=== PATIENT | female | born 1965 | race Caucasian/White ===

== ENCOUNTER → 2016-09-06 | Outpatient (CLI) | payer BC ==
[~2016-09-06] MED LIST: B-COTAB18 PO; DICL50TA3 PO; FLUO10CA48 PO; METF500T5 PO; MULT-506 PO; SIMV20TA2 PO
[2016-09-06 12:44] LABS: ESTIMATED AVERAGE GLUCOSE 126 mg/dl; HA1C FLAG Normal (Normal)
[2016-09-06 12:55] LABS: CALCIUM 9.1 mg/dl (8.5-10.1)
[2016-09-06 13:04] LABS: BLOOD UREA NITROGEN 13 mg/dl (7-18); BUN/CREATININE RATIO 14.2 (10-20); CARBON DIOXIDE 30 mmol/L (21-32); CHLORIDE 105 mmol/L (98-107); CREATININE 0.92 mg/dl (0.60-1.20); GLUCOSE 120 mg/dl (70-99); GLUCOSE,FASTING 120 mg/dl (70-99); PHOSPHORUS 2.9 mg/dl (2.5-4.9); POTASSIUM 4.3 mmol/L (3.5-5.1); SODIUM 141 mmol/L (136-145)
== END | disposition home or self-care (01) ==
LOC: C.LABBFT 09:14
PROVIDERS: ATTEND Internal Medicine
DX: N20.0 Calculus of kidney (principal); R73.01 Impaired fasting glucose

== ENCOUNTER → 2016-11-29 | Outpatient (CLI) | payer BC ==
[2016-11-29 17:42] LABS: BLOOD UREA NITROGEN 12 mg/dl (7-18); BUN/CREATININE RATIO 13.5 (10-20); CALCIUM 9.8 mg/dl (8.5-10.1); CARBON DIOXIDE 32 mmol/L (21-32); CHLORIDE 103 mmol/L (98-107); GLUCOSE 95 mg/dl (70-99); POTASSIUM 4.5 mmol/L (3.5-5.1); SODIUM 140 mmol/L (136-145)
[2016-11-29 17:43] LABS: PHOSPHORUS 2.9 mg/dl (2.5-4.9)
== END | disposition home or self-care (01) ==
LOC: C.LABBFT 12:11
PROVIDERS: ATTEND Internal Medicine Nephrology
DX: N20.0 Calculus of kidney (principal)

== ENCOUNTER → 2016-12-23 | Outpatient (CLI) | payer BC ==
--- NOTE | 2016-12-24 14:30 | MAMMOGRAPHY REPORT ---
BILATERAL DIGITAL SCREENING MAMMOGRAM TOMOSYNTHESIS WITH CAD: 12/23/2016 CLINICAL HISTORY: Routine screening. Patient has no complaints. TECHNIQUE: Breast tomosynthesis in addition to standard 2D mammography was performed. Current study was also evaluated with a Computer Aided Detection (CAD) system. COMPARISON: Comparison is made to exams dated: 12/18/2015 mammogram, 12/02/2014 mammogram, 11/28/2013 m ammogram, 11/22/2012 mammogram, 11/22/2011 mammogram, and 11/18/2010 mammogram - [facility] enter. BREAST COMPOSITION: The tissue of both breasts is almost entirely fatty. FINDINGS: There is a newly visualized circumscribed 4 mm mass within the right upper outer quadrant anteriorly, for which ultrasound and possible additional spot compression views are recommended for f urther evaluation. This may represent a cyst. The remainder of both breasts are stable compared to prior exams, without suspicious masses, calcific ations, or areas of architectural distortion noted. Scattered bilateral benign-appearing calcificati ons are not significantly changed. IMPRESSION: ACR BI-RADS CATEGORY 0: INCOMPLETE EVALUATION: NEED ADDITIONAL IMAGING EVALUATION Right breast mass, for which additional imaging evaluation is recommended. The patient will be prieto d to schedule an appointment. Approximately 10% of breast cancers are not detected with mammography. A negative mammographic report should not delay biopsy if a clinically suggestive mass is present. Keke Smith M.D. /:12/23/2016 16:55:38 Aerospace Project Manager: Elicia LIMR, M, [facility] letter sent: Addl Imaging 0 BI-RADS Code: ACR BI-RADS Category 0: Incomplete Evaluation: Need Additional Imaging Evaluation
== END | disposition home or self-care (01) ==
LOC: C.MAMM 13:12
PROVIDERS: ATTEND Obstetrics & Gynecology
DX: Z12.31 Encounter for screening mammogram for malignant neoplasm of breast (principal); N63 Unspecified lump in breast

== ENCOUNTER → 2017-01-03 | Outpatient (CLI) | payer BC ==
--- NOTE | 2017-01-03 13:49 | MAMMOGRAPHY REPORT ---
ULTRASOUND OF RIGHT BREAST: 01/03/2017 CLINICAL HISTORY: 51-year-old woman with a history of prior reduction mammoplasty call back from scre ening mammography for a newly visualized 4 mm mass in the lateral anterior right breast on the CC vie w, thought to project inferiorly on the MLO view. COMPARISON: Comparison is made to exams dated: 12/23/2016 mammogram, 12/18/2015 mammogram, 12/02/2014 m ammogram, 11/28/2013 mammogram, 11/22/2011 mammogram, and 11/18/2010 mammogram - [facility] enter. FINDINGS: Targeted ultrasound was performed in the lateral right breast. In the 7:00 axis, 2 cm fro m the nipple, there is a lobulated and circumscribed hypoechoic and anechoic solid versus cystic mass , with a small rounded lobulation along the medial aspect. It measures approximately 2.1 x 2.4 x 3.5 mm, and correlates with the newly visualized mammographic mass. Given that it is difficult to asses s whether this represents a solid or cystic lesion, definitive characterization with ultrasound guide d cyst aspiration versus core needle biopsy is recommended. Post procedure mammograms should also be performed. IMPRESSION: ACR BI-RADS CATEGORY 4B: INTERMEDIATE SUSPICION FOR MALIGNANCY - FOLLOW-UP RECOMMENDED 1. There is a 3.5 mm lobulated and circumscribed hypoechoic and anechoic solid versus cystic mass in the 7:00 right breast, 2 cm from the nipple, thought to correlate with a newly visualized mammograph ic mass. Definitive characterization with ultrasound guided cyst aspiration versus core needle biops y is recommended. Postprocedure mammography is also recommended. These results and recommendations were discussed with the patient at the time of the exam. She tenta tively scheduled the right breast procedure prior to leaving our department. Beba Lombardo M.D. ay/:01/03/2017 11:27:16 Knot Borer: Katherine BAH)([place]), [facility] letter sent: Abnormal 4/5 BI-RADS Code: ACR BI-RADS Category 4B: Intermediate Suspicion For Malignancy
== END | disposition home or self-care (01) ==
LOC: C.MAMM 08:21
PROVIDERS: ATTEND Obstetrics & Gynecology
DX: N63 Unspecified lump in breast (principal)

== ENCOUNTER → 2017-01-06 | Outpatient (CLI) | payer BC ==
--- NOTE | 2017-01-06 12:41 | MAMMOGRAPHY REPORT ---
ASPIRATION RIGHT BREAST: 01/06/2017 CLINICAL HISTORY: Right 7:00 breast mass. PATIENT CONSENT: The procedure and risks of ultrasound-guided cyst aspiration were discussed in full with the patient. Both oral and written consents were obtained. PROCEDURE DESCRIPTION: With ultrasound guidance, aseptic technique, and 1% lidocaine as a local anest hetic, the mass of concern in the right 7:00 breast was aspirated to completion. A small amount of b enign-appearing yellow fluid was obtained and discarded. Direct pressure was applied to the site imm ediately post procedure and hemostasis was achieved. The patient tolerated the procedure without com plication. Postprocedural unilateral mammograms were obtained; see separate report for details. COMPARISON: Comparison is made to exams dated: 01/03/2017 ultrasound, 12/23/2016 mammogram, 12/18/2015 mammogram, 12/02/2014 mammogram, 11/28/2013 mammogram, and 11/22/2012 mammogram - [facility]. IMPRESSION: ASPIRATION Successful ultrasound-guided aspiration of the right 7:00 breast mass. Given that it completely aspi rated, it is consistent with a benign cyst. The aspirated fluid was discarded. Recommend routine bi lateral screening mammograms in one year. Keke Smith M.D. /:01/06/2017 09:53:53 Performance Specialist: Analia BAH)([place]), [facility]
--- NOTE | 2017-01-06 12:41 | MAMMOGRAPHY REPORT ---
UNILATERAL RIGHT DIGITAL DIAGNOSTIC MAMMOGRAM TOMOSYNTHESIS: 01/06/2017 CLINICAL HISTORY: Status post aspiration of a right 7:00 breast cyst. TECHNIQUE: Breast tomosynthesis in addition to standard 2D mammography was performed. Postprocedura l right CC and MLO 2-D and tomosynthesis images were obtained. COMPARISON: Comparison is made to exams dated: 01/03/2017 ultrasound, 12/23/2016 mammogram, 12/18/2015 mammogram, 12/02/2014 mammogram, 11/28/2013 mammogram, and 11/22/2012 mammogram - [facility]. BREAST COMPOSITION: The tissue of the right breast is almost entirely fatty. FINDINGS: The previously seen small mass in the right lower outer quadrant anteriorly is no longer ev ident status post aspiration of the right 7:00 breast cyst, indicating good correlation between the a spirated sonographic mass and the mammographic mass. No suspicious masses or other suspicious findin gs are seen on the postprocedural images. IMPRESSION: ACR BI-RADS CATEGORY 2: BENIGN The mammographic mass is no longer evident after aspiration of the right 7:00 breast cyst, indicating good mammographic-sonographic correlation. There is no mammographic evidence of malignancy. A 1 yea r screening mammogram is recommended. The patient was verbally notified of the results. Approximately 10% of breast cancers are not detected with mammography. A negative mammographic report should not delay biopsy if a clinically suggestive mass is present. Keke Smith M.D. /:01/06/2017 09:56:12 Weatherization And Housing Inspector: Analia LIM(R)([place]), [facility] BI-RADS Code: ACR BI-RADS Category 2: Benign
== END | disposition home or self-care (01) ==
LOC: C.MAMM 09:16
PROVIDERS: ATTEND Obstetrics & Gynecology
DX: N60.01 Solitary cyst of right breast (principal)

== ENCOUNTER → 2017-03-21 | Outpatient (CLI) | payer BC | END | disposition home or self-care (01) | LOC: C.PAPS 11:41 | PROVIDERS: ATTEND Obstetrics & Gynecology | DX: Z01.419 Encounter for gynecological examination (general) (routine) without abnormal findings (principal) ==

== ENCOUNTER → 2017-03-22 | Outpatient (CLI) | payer BC ==
[2017-03-22 12:21] LABS: ALT/SGPT 40 U/L (12-78); AST/SGOT 34 U/L (15-37); BLOOD UREA NITROGEN 14 mg/dl (7-18); CALCIUM 9.2 mg/dl (8.5-10.1); CARBON DIOXIDE 26 mmol/L (21-32); CHLORIDE 101 mmol/L (98-107); CHOLESTEROL 138 mg/dl (0-200); GLUCOSE 108 mg/dl (70-99); POTASSIUM 3.8 mmol/L (3.5-5.1); SODIUM 137 mmol/L (136-145); TRIGLYCERIDES 203 mg/dl (0-150); VERY LOW DENSITY LIPOPROT CALC 41 mg/dl
[2017-03-22 12:24] LABS: ALB/GLOB RATIO 0.9 (0.9-2); ALKALINE PHOSPHATASE 123 U/L (45-117); CHOLESTEROL/HDL RATIO 3.2; HDL CHOLESTEROL 43 mg/dl; LDL CHOLESTEROL CALCULATED 54 mg/dl
[2017-03-22 12:27] LABS: ESTIMATED AVERAGE GLUCOSE 117 mg/dl; HA1C FLAG Normal (Normal)
== END | disposition home or self-care (01) ==
LOC: C.LABBFT 09:03
PROVIDERS: ATTEND Physician Assistant Medical
DX: E78.5 Hyperlipidemia, unspecified (principal); R73.01 Impaired fasting glucose

== ENCOUNTER 2024-05-24 17:14 | Inpatient (IN) ==
[2024-05-24 18:14] LABS: Basophils # (auto) 0.05 K/uL (0.00-0.20); Basophils % (auto) 0.4 %; Eosinophils # (auto) 0.03 K/uL (0.00-0.50); Eosinophils % (auto) 0.2 %; Hematocrit (blood only) 41.8 % (37.0-47.0); Hemoglobin 13.7 g/dl (12.0-16.0); Immature Granulocytes # (auto) 0.06 K/uL (0.01-0.20); Immature Granulocytes % (auto) 0.5 %; Lymphocytes % (auto) 12.1 %; Mean Corpuscular Hemoglobin 30.8 pg (25.0-34.0); Mean Corpuscular Hgb Conc 32.8 g/dL (32.0-36.0); Mean Corpuscular Volume 93.9 fL (80.0-100.0); Monocytes # (auto) 0.69 K/uL (0.11-0.59); Monocytes % (auto) 5.2 %; Neutrophils # (auto) 10.77 K/uL (1.40-6.50); Neutrophils % (auto) 81.6 %; Platelet Count 296 K/uL (130-400); RDW Coefficient of Variation 11.9 % (11.5-14.5); RDW Standard Deviation 40.7 fL (36.4-46.3); Red Blood Count 4.45 M/uL (4.20-5.40)
[2024-05-24 18:27] LABS: Albumin Globulin Ratio 1.3 (0.9-2); Albumin Level 4.4 gm/dl (3.4-5.0); BUN Creatinine Ratio 29.6 (10-20); Bilirubin,Total 1.3 mg/dl (0.2-1.0); Calcium 9.5 mg/dl (8.6-10.3); Creatinine Clr Calc Pharmacy 80.8 ml/min; Globulin 3.3 gm/dl (2.5-4.0); Potassium 4.1 mmol/L (3.5-5.1); Total Protein 7.7 gm/dl (6.0-8.3)
--- NOTE | 2024-05-24 19:37 | CT Scan Report ---
Exam(s): CT ABDOMEN + PELVIS Without Contrast EXAM: CT Abdomen and Pelvis Without Intravenous Contrast CLINICAL HISTORY: Reason for exam: flank pain. TECHNIQUE: Axial computed tomography images of the abdomen and pelvis without intravenous contrast. CTDI is 27.76 mGy and DLP is 1403.75 mGy-cm. Automated exposure control was utilized for the study. A dose lowering technique was utilized adhering to the principles of ALARA. COMPARISON: 11/30/2022. FINDINGS: ABDOMEN: Liver: Unremarkable. Gallbladder and bile ducts: Unremarkable. Pancreas: Unremarkable. Spleen: Unremarkable. Adrenals: Unremarkable. Kidneys and ureters: Stone measuring 3 mm within the distal third of the left ureter with upstream hydroureteronephrosis. Stomach and bowel: Unremarkable. PELVIS: Appendix: No findings to suggest acute appendicitis. Bladder: Unremarkable. Reproductive: Unremarkable as visualized. ABDOMEN and PELVIS: Intraperitoneal space: Unremarkable. No free air. No significant fluid collection. Bones/joints: No acute fracture. Soft tissues: Unremarkable. Vasculature: Unremarkable. Lymph nodes: Unremarkable. IMPRESSION: Stone measuring 3 mm within the distal third of the left ureter with upstream hydroureteronephrosis. Electronically signed by: Davidson Morrison MD 05/24/24 19:36 PM
[2024-05-24 20:24] LABS: Appearance Urine Turbid (Clear); Bacteria Urine Automated None Seen (None Seen); Bilirubin Urine Negative (Negative); Blood Urine 3+ (Negative); Color Urine Orange; Glucose Urine UA Negative (Negative); Ketones Urine Negative (Negative); Leukocyte Esterase Urine 1+ (Negative); Mucus Urine Present (None Prsent); Nitrite Urine Negative (Negative); Protein Urine 2+ (Negative); RBC Urine Automated >20 /hpf (0-2); Urobilinogen Urine Negative (Negative); WBC Urine Automated >50 /hpf (0-5)
--- NOTE | 2024-05-24 21:19 | Emergency Department Note ---
Impression & Plan Calculus of distal left ureter, Acute UTI (urinary tract infection), Leukocytosis ED Provider Note HISTORY OF PRESENT ILLNESS: Patient is a 59-year-old female presenting with left flank pain and left lower quadrant abdominal pain. Patient reports that pain started acutely at 10 AM today. Reports that this feels similar to her prior history of kidney stones. Reports that her previous stones have required a stent and lithotripsy. She denies any measured fevers at home, but reports that she has had sweats and chills throughout the day today. Reports nausea but denies any vomiting or diarrhea. Denies any recent dysuria, but does report she had blood in her urine today. Denies any chest pain or shortness of breath. Denies any recent cough or sick contact exposures. Denies any recent antibiotic use. ROS: as above PHYSICAL EXAM: Constitutional: Patient appears in no acute distress. HENT: Head: Normocephalic and atraumatic. Eyes: EOMI, PERRL Mouth/Throat: Mucous membranes moist. Neck: Trachea midline. Neck supple. Cardiovascular: RRR, No murmurs, rubs or gallops. Intact distal pulses. Pulmonary/Chest: No respiratory distress. Breath sounds clear and equal bilaterally. No wheezes or rales. Abdominal: Abdomen soft, no tenderness, rebound or guarding. Musculoskeletal: No edema, tenderness or deformity noted. Skin: Warm and dry. No rash, erythema, pallor or cyanosis Psychiatric: Appropriate mood and affect for situation. Neurological: Alert and keenly responsive. CN II-XII grossly intact, moving all extremities equally and fully. MDM: - Vitals signs showed hypertension and bradycardia. - History obtained via patient. History as above. - Chronic conditions affecting care: HTN; nephrolithiasis; HLD - Differential diagnoses include, but are not limited to: UTI; pyelonephritis; ureteral stone; diverticulitis; small bowel obstruction - Order placed for continuous cardiac monitoring. At this time, monitor showed rate of 56 bpm with normal sinus rhythm, per my interpretation. - External medical records reviewed. Primary care visit note dated 07/20/2023 was reviewed. Patient was seen for routine follow-up exam. She had basic blood work ordered at that visit. - Laboratory workup interpreted by myself showed leukocytosis (WBC 13.20) with neutrophil predominance; stable electrolytes; normal creatinine; hyperglycemia (glucose 137); elevated total bilirubin (1.3) with normal AST/ALT - UA showed evidence of infection - CT abdomen/pelvis with IV contrast showed a 3 mm stone within the distal third of the left ureter with upstream hydroureteronephrosis. - Patient has anaphylactic allergy to penicillins. She was given 400 mg IV Cipro for UTI coverage. - Given 4 mg IV morphine and 4 mg IV zofran for pain and nausea in ER. Given 1L NS - Discussed case with urologist refrigeration tech, Dr. Quiroz, at 21:15. He agreed with admission for IV antibiotics and urologic consultation. Recommends n.p.o. at midnight. Reports that the patient starts to look ill or starts having vital sign abnormalities, urology should be contacted immediately for more emergent interventions. - Discussion was had with showcase maker about patient's case and need for admission - Hospitalist consulted for admission - Patient admitted to [facility]ist service for further evaluation and management. ASSESSMENT AND PLAN: Diagnosis: calculus of distal left ureter; acute UTI; leukocytosis Plan: admit Past Med/Surg History Problem List (Updated 05/24/24 @ 21:35 by Alisa Lynch MD) Leukocytosis (Acute) Acute UTI (urinary tract infection) (Acute) Calculus of distal left ureter (Acute) Vitamin D deficiency Nephrolithiasis Carpal tunnel syndrome Diverticulosis of colon Hyperlipidemia Hypertension Obesity Sleep apnea pt denies Degenerative joint disease of wrist Left knee pain S/P wrist surgery Routine gynecological examination Diabetes type 2, controlled Medical History Diabetes type 2, controlled Osteoarthritis Kidney stones Spasm Diabetes mellitus, type 2 Anxiety Depression Sleep apnea Obesity Hypertension Hyperlipidemia Diverticulosis of colon Surgical History History of breast biopsy H/O bilateral breast reduction surgery History of bilateral tubal ligation History of lithotripsy History of colonoscopy S/P blepharoplasty H/O eye surgery S/P cystoscopy with ureteral stent placement Family History Mother Lymphoma Breast cancer Father Myocardial infarction Hypertension Sister ESRD (end stage renal disease) Brother Hypertension Other No family history of adverse response to anesthesia Denies family history of Ovarian cancer Prostate cancer Colorectal cancer Social History Smoking Status: Never smoker Second Hand Exposure: No; Do You Dip or Chew Tobacco: No; Hx Alcohol Use: No Hx Substance Use: No Preferred Language: Sammarinese Communication Ability: Effective Visual Impairment: No Limitations Hearing Ability: Normal Load Out Person Required: No Beliefs That Will Affect Care: None marital status: Current Living Situation: Spouse current occupational status: retired current occupation: [employer] Feels Safe at Home: Yes Childhood Exposure to Second-Hand Smoke: No Diet: regular caffeine: Yes Dental Care, Regularly: Yes Physical Activity Frequency: 1-2 Times per Week Seatbelt Use: always Sunscreen Use: Yes Assistive Devices: Glasses Allergies Allergies Allergy/AdvReac Type Severity Reaction Status Date / Time Penicillins Allergy Unknown ANAPHYLAXIS Verified 04/26/24 08:57 Home Meds Home Medications Medication Instructions Recorded Confirmed cholecalciferol (vitamin D3) 25 2,000 unit PO HS #60 tabs 05/26/20 04/26/24 mcg (1,000 unit) tablet multivitamin 1 tab PO HS 05/26/20 04/26/24 aspirin 81 mg tablet,delayed 81 mg PO .qod 06/20/23 04/26/24 release (Leslie Low Dose Aspirin) Previous Rx's Medication Instructions Recorded cyclobenzaprine 10 mg tablet 10 mg PO TID PRN muscle spasm #30 06/16/21 tabs blood sugar diagnostic (OneTouch #100 ea 12/30/21 Verio test strips) blood-glucose meter (OneTouch #1 ea 12/30/21 Verio Reflect Meter) lancing device with lancets kit #100 ea 12/30/21 (BlaBlaCarTouch Delica Lancing Device kit) simvastatin 40 mg tablet 40 mg PO HS #90 tabs 06/20/23 fluoxetine 10 mg capsule 10 mg PO QPM #90 caps 11/16/23 diclofenac sodium 50 mg 50 mg PO HS pain #90 tabs 03/19/24 tablet,delayed release metformin 500 mg tablet,extended 1,000 mg (2 x 500 mg) PO HS #180 03/21/24 release 24 hr tabs Results & Data (ED) Vital Signs Vital Signs - 24 hr 05/24/24 17:33 05/24/24 20:29 Temperature 36.9 C Temperature Source Temporal Artery Scan Pulse Rate 85 Pulse Rate [Finger] 56 L Respiratory Rate 18 18 Respiratory Effort / Characteristics Non-Labored Non-Labored Spontaneous Respiratory Depth Normal Normal Respiratory Pattern Regular Blood Pressure 134/75 Blood Pressure [Right Arm] 141/76 H Blood Pressure Mean 94 Blood Pressure Mean [Right Arm] 97 Pulse Oximetry 98 98 Oxygen Delivery Method Room Air Room Air Sepsis Recent Fever Within 48 Hours No Sepsis New/Unexplained Change in Mental Status No Sepsis Action Taken by Nursing No Action Required Laboratory Data 05/24/24 17:52 05/24/24 17:52 Lab Results 05/24/24 05/24/24 Range/Units 17:52 19:43 WBC 13.20 H (4.8-10.8) K/ul RBC 4.45 (4.20-5.40) M/uL Hgb 13.7 (12.0-16.0) g/dl Hct 41.8 (37.0-47.0) % MCV 93.9 (80.0-100.0) fL MCH 30.8 (25.0-34.0) pg MCHC 32.8 (32.0-36.0) g/dL RDW Std Deviation 40.7 (36.4-46.3) fL RDW Coeff of Greg 11.9 (11.5-14.5) % Plt Count 296 (130-400) K/uL MPV 10.0 (9.4-12.4) fL Immature Gran % (Auto) 0.5 % Neut % (Auto) 81.6 % Lymph % (Auto) 12.1 % Hyde % (Auto) 5.2 % Eos % (Auto) 0.2 % Baso % (Auto) 0.4 % Neut # (Auto) 10.77 H (1.40-6.50) K/uL Lymph # (Auto) 1.60 (1.20-3.40) K/uL Hyde # (Auto) 0.69 H (0.11-0.59) K/uL Eos # (Auto) 0.03 (0.00-0.50) K/uL Baso # (Auto) 0.05 (0.00-0.20) K/uL Immature Gran # (Auto) 0.06 (0.01-0.20) K/uL Sodium 137 (136-145) mmol/L Potassium 4.1 (3.5-5.1) mmol/L Chloride 102 (98-107) mmol/L Carbon Dioxide 26 (21-32) mmol/L Anion Gap 9 (3-11) BUN 24 H (6-23) mg/dl Creatinine 0.81 (0.6-1.2) mg/dl Est Cr Clr Drug Dosing 80.8 ml/min eGFR 82.54 BUN/Creatinine Ratio 29.6 H (10-20) Glucose 137 H (70-99(Fasting)) mg/dl Calcium 9.5 (8.6-10.3) mg/dl Total Bilirubin 1.3 H (0.2-1.0) mg/dl AST 38 (13-39) U/L ALT 39 (7-52) U/L Alkaline Phosphatase 75 (34-104) U/L Total Protein 7.7 (6.0-8.3) gm/dl Albumin 4.4 (3.4-5.0) gm/dl Globulin 3.3 (2.5-4.0) gm/dl Albumin/Globulin Ratio 1.3 (0.9-2) Urine Color [place] Urine Appearance Turbid A (Clear) Urine pH 5.0 (4.5-7.5) Ur Specific [place] 1.040 H (1.000-1.030) Urine Protein 2+ H (Negative) Urine Glucose (UA) Negative (Negative) Urine Ketones Negative (Negative) Urine Blood 3+ H (Negative) Urine Nitrite Negative (Negative) Urine Bilirubin Negative (Negative) Urine Urobilinogen Negative (Negative) Ur Leukocyte Esterase 1+ H (Negative) Urine WBC (Auto) >50 H (0-5) /hpf Urine RBC (Auto) >20 H (0-2) /hpf U Hyaline Cast (Auto) 11-20 H (0-2) /lpf U Epithel Cells (Auto) 3-5 H (0-2) /hpf Urine Bacteria (Auto) None Seen (None Seen) Urine Mucus Present A (None Prsent) Urine Yeast Present A (None Prsent) Administered Medications Discontinued Medications Sodium Chloride (Nss) 1,000 mls @ 999 mls/hr IV .Q1H1M ONE Stop: 05/24/24 21:30 Last Admin: 05/24/24 21:26 Dose: 999 mls/hr Documented By: DML Morphine Sulfate (Morphine Sulfate 4 Mg/Ml 1 Ml Carp\Vial) 4 mg IV NOW STA Stop: 05/24/24 20:51 Last Admin: 05/24/24 21:26 Dose: 4 mg Documented By: DICKSON Ondansetron HCl (Ondansetron Inj 2 Mg/Ml 2 Ml Vial) 4 mg IV NOW STA Stop: 05/24/24 20:51 Last Admin: 05/24/24 21:26 Dose: 4 mg Documented By: DICKSON Imaging Data Radiologist's Impression: Abdomen/Pelvis CT 05/24/24 17:41 Exam(s): CT ABDOMEN + PELVIS Without Contrast EXAM: CT Abdomen and Pelvis Without Intravenous Contrast CLINICAL HISTORY: Reason for exam: flank pain. TECHNIQUE: Axial computed tomography images of the abdomen and pelvis without intravenous contrast. CTDI is 27.76 mGy and DLP is 1403.75 mGy-cm. Automated exposure control was utilized for the study. A dose lowering technique was utilized adhering to the principles of ALARA. COMPARISON: 11/30/2022. FINDINGS: ABDOMEN: Liver: Unremarkable. Gallbladder and bile ducts: Unremarkable. Pancreas: Unremarkable. Spleen: Unremarkable. Adrenals: Unremarkable. Kidneys and ureters: Stone measuring 3 mm within the distal third of the left ureter with upstream hydroureteronephrosis. Stomach and bowel: Unremarkable. PELVIS: Appendix: No findings to suggest acute appendicitis. Bladder: Unremarkable. Reproductive: Unremarkable as visualized. ABDOMEN and PELVIS: Intraperitoneal space: Unremarkable. No free air. No significant fluid collection. Bones/joints: No acute fracture. Soft tissues: Unremarkable. Vasculature: Unremarkable. Lymph nodes: Unremarkable. IMPRESSION: Stone measuring 3 mm within the distal third of the left ureter with upstream hydroureteronephrosis. Electronically signed by: Davidson Morrison MD 05/24/24 19:36 PM Discharge Plan Visit Data Chief Complaint: Kidney Stone Stated Complaint: KIDNY STONE, ABD PAIN, BACK PAIN, NAUSEA ED Provider: Alisa Lynch Discharge Problem: Calculus of distal left ureter, Acute UTI (urinary tract infection), Leukocytosis Forms Stand Alone Forms: [employer] Prescriptions Prescriptions: No Action (DME) blood-glucose meter [OneTouch Verio Reflect Meter] Misc See Rx Instructions .Route Qty: 1 0RF Rx Instructions: As directed (DME) OneTouch Verio test strips Strip See Rx Instructions .Route Qty: 100 3RF Rx Instructions: As directed (DME) lancing device with lancets [[employer] DelBlueMessaging Lanc Device] Kit See Rx Instructions .Route Qty: 100 0RF Rx Instructions: As directed fluoxetine 10 mg capsule 10 mg PO QPM Qty: 90 3RF diclofenac sodium 50 mg tablet,delayed release (DR/EC) 50 mg PO HS Qty: 90 1RF metformin 500 mg tablet extended release 24 hr 1,000 mg PO HS Qty: 180 3RF cyclobenzaprine 10 mg tablet 10 mg PO TID PRN (Reason: muscle spasm) Qty: 30 0RF cholecalciferol (vitamin D3) 25 mcg (1,000 unit) tablet 2,000 unit PO HS Qty: 60 simvastatin 40 mg tablet 40 mg PO HS Qty: 90 3RF multivitamin Tablet 1 tab PO HS aspirin [Leslie Low Dose Aspirin] 81 mg tablet,delayed release (DR/EC) 81 mg PO .qod Referrals Referrals: Orville Barakat MD [Primary Care Provider] -
[2024-05-24] MEDS: MoRPHine SULFATE 4 MG/ML 1 ML CARP\\VIAL IV STA (21:26)
[2024-05-24] MEDS: ONDANSETRON INJ 2 MG/ML 2 ML VIAL IV STA (21:26)
[2024-05-24] MEDS: SODIUM CHLORIDE 0.9% 1,000 ML IV ONE (21:26)
--- NOTE | 2024-05-24 21:29 | History & Physical Report ---
Date of Service May 24, 2024 Assessment & Plan (1) Calculus of distal left ureter: Plan: - CT A&P with 3mm stone in distal third of left ureter with upstream hydroureteronephrosis - s/p 1L NSS in ED; continue for an admission 1L @125ml/hr overnight - Pain regimen with morphine 2mg q4h pain 1-5 prn, 4mg pain 6-10 - will give tamsulosin - notes that she required small sized catheter with procedure in the past - urology consulted; NPO at midnight pending eval (2) Acute UTI (urinary tract infection): Plan: - Leukocytosis with + UA in the setting of nephrolithiasis - Started on ciprofloxacin in the ED plan to continue - last culture 04/2018-> group B strep - f/u urine culture (3) Leukocytosis: Plan: - WBC= 13.2 in the setting of UTI-> plan for antibiotics as per above (4) Diabetes mellitus, type 2: Plan: - hold metformin - last hemoglobin a1c= 5.9 04/2024 - well controlled for years; unlikely to require any insulin coverage while admitted (5) Anxiety: Plan: - continue fluoxetine Plan Diet: NPO midnight for urology Code: Full VTE Prophylaxis: SCD; hold chemical pending ?urology procedure Dispo: tele History of Present Illness Primary Care Provider: Orville Barakat MD 59 year old female with a past medical history of kidney stones, HLD, DM2 presenting with concern for kidney stone. Has a history of kidney stones. Pain started around 1000. Left abdomen/flank. Notes hematuria. Pain is similar to prior kidney stones, but has been a few years since for last. Follows with urology. Denies fever/chills. Pain has improved significantly after morphine. Did require stent/lithotripsy with prior stones. ED Course Significant for: WBC= 13.2, UA +blood, LE, WBC. CT A&P with 3mm stone in distal third of left ureter with upstream hydroureteronephrosis. S/p ciprofloxacin, 4mg IV morphine, 4mg Zofran, 1L NSS Allergies Allergy/AdvReac Type Severity Reaction Status Date / Time Penicillins Allergy Unknown ANAPHYLAXIS Verified 04/26/24 08:57 Home Medications Medication Instructions Recorded Confirmed Type cholecalciferol (vitamin D3) 25 2,000 unit PO HS #60 tabs 05/26/20 05/24/24 History mcg (1,000 unit) tablet multivitamin 1 tab PO HS 05/26/20 05/24/24 History cyclobenzaprine 10 mg tablet 10 mg PO TID PRN muscle spasm #30 06/16/21 05/24/24 Rx tabs blood sugar diagnostic (OneTouch #100 ea 12/30/21 05/24/24 Rx Verio test strips) blood-glucose meter (OneTouch #1 ea 12/30/21 05/24/24 Rx Verio Reflect Meter) lancing device with lancets kit #100 ea 12/30/21 05/24/24 Rx ([employer] Lancing Device kit) aspirin 81 mg tablet,delayed 81 mg PO Q OTHER DAY 06/20/23 05/24/24 History release (Leslie Low Dose Aspirin) simvastatin 40 mg tablet 40 mg PO HS #90 tabs 06/20/23 05/24/24 Rx diclofenac sodium 50 mg 50 mg PO HS pain #90 tabs 03/19/24 05/24/24 Rx tablet,delayed release metformin 500 mg tablet,extended 1,000 mg (2 x 500 mg) PO HS #180 03/21/24 05/24/24 Rx release 24 hr tabs fluoxetine 10 mg capsule 10 mg PO HS 05/24/24 05/24/24 History Past Med/Surg History Problem List (Updated 05/24/24 @ 23:06 by Jacob Carbone) Leukocytosis (Acute) Acute UTI (urinary tract infection) (Acute) Calculus of distal left ureter (Acute) Vitamin D deficiency Nephrolithiasis Carpal tunnel syndrome Diverticulosis of colon Hyperlipidemia Hypertension Obesity Sleep apnea pt denies Degenerative joint disease of wrist Left knee pain S/P wrist surgery Routine gynecological examination Diabetes type 2, controlled Medical History Diabetes type 2, controlled Osteoarthritis Kidney stones Spasm Diabetes mellitus, type 2 Anxiety Depression Sleep apnea Obesity Hypertension Hyperlipidemia Diverticulosis of colon Surgical History History of breast biopsy H/O bilateral breast reduction surgery History of bilateral tubal ligation History of lithotripsy History of colonoscopy S/P blepharoplasty H/O eye surgery S/P cystoscopy with ureteral stent placement Family History Mother Lymphoma Breast cancer Father Myocardial infarction Hypertension Sister ESRD (end stage renal disease) Brother Hypertension Other No family history of adverse response to anesthesia Denies family history of Ovarian cancer Prostate cancer Colorectal cancer Social History Smoking Status: Never smoker Second Hand Exposure: No; Do You Dip or Chew Tobacco: No; Hx Alcohol Use: Yes Hx Substance Use: No Preferred Language: Azeri Communication Ability: Effective Visual Impairment: No Limitations Hearing Ability: Normal Straightener Required: No Beliefs That Will Affect Care: None marital status: Current Living Situation: Spouse current occupational status: retired current occupation: [employer] Other Information That Helps Us Care for You: No Feels Safe at Home: Yes Safety Concerns: Feels Safe At This Time Childhood Exposure to Second-Hand Smoke: No Diet: regular caffeine: Yes Dental Care, Regularly: Yes Physical Activity Frequency: 1-2 Times per Week Seatbelt Use: always Sunscreen Use: Yes Assistive Devices: Glasses Review of Systems Review of Systems: As per above Physical Exam Physical Exam: Constitutional: well-appearing, no acute distress HEENT: NCAT, no conjunctival injection CV: regular rhythm, no murmur appreciated, extremities well-perfused, no LE edema Resp: CTABL, no wheezes/rales/rhonchi appreciated, no increased work of breathing GI: soft, nondistended, nontender MSK: no gross deformities appreciated Skin: warm, dry, no rash appreciated Neuro: alert, oriented, no focal neurologic deficit appreciated Results & Data Results & Data Vital Signs (Past 12 Hours) Vital Signs Temp Pulse Pulse Resp BP BP Pulse Ox 05/24/24 20:29 56 L 18 141/76 H 98 05/24/24 17:33 36.9 C 85 18 134/75 98 O2 Del Method 05/24/24 20:29 Room Air 05/24/24 17:33 Room Air Supervising Physician Co-Signing Physician Notes Attending addendum: I have physically seen this patient, have supervised the medical residents activities, and agree with the H&P unless as otherwise noted. Assessment and Plan: The patient is a 59-year-old female with past medical history including vitamin D deficiency, carpal tunnel syndrome, diverticulosis, hyperlipidemia, hypertension, sleep apnea, diabetes mellitus type 2. She presents to the emergency department with left lower quadrant abdominal and pelvic pain. #3 mm distal left ureteral calculus/hydronephrosis- N.p.o. after midnight Follow urine culture and sensitivity Empiric ciprofloxacin 400 mg IV every 12 hours Give tamsulosin 0.4 mg p.o. now, and every morning Acetaminophen 650 mg by mouth every 6 hours as needed for mild pain or fever Pain regimen with serial escalating doses of morphine 2 mg every 4 hours as needed moderate pain, and 4 mg every 4 hours as needed for severe pain Hold aspirin Consult urology #Diabetes mellitus- Glucose 137 on admission Hold metformin Place on Accu-Cheks with NovoLog SSI #Chronic medical issues: Anxiety-Continue fluoxetine Hyperlipidemia-continue simvastatin Anxiety depression-continue fluoxetine Resident Activity Tracking Resident Involvement: Resident Care Provided Care Provided: Adult Hospital Medicine
[2024-05-24] MEDS ORDERED: MoRPHine SULFATE 4 MG/ML 1 ML CARP\\VIAL IV PRN (21:51)
[2024-05-24] MEDS: CIPROFLOXACIN / D5W 400 MG/200 ML BAG IV STA (22:15)
[2024-05-24] MEDS: TAMSULOSIN HCL 0.4 MG CAP PO ONE (22:15)
[2024-05-24] MEDS: SODIUM CHLORIDE 0.9% 1,000 ML IV SCH (23:15)
[2024-05-25] MEDS: MoRPHine SULFATE 2 MG/ML CARP IV PRN (04:30)
[2024-05-25 06:44] LABS: Basophils # (auto) 0.02 K/uL (0.00-0.20); Basophils % (auto) 0.2 %; Eosinophils # (auto) 0.01 K/uL (0.00-0.50); Eosinophils % (auto) 0.1 %; Hematocrit (blood only) 36.9 % (37.0-47.0); Hemoglobin 11.9 g/dl (12.0-16.0); Immature Granulocytes # (auto) 0.03 K/uL (0.01-0.20); Immature Granulocytes % (auto) 0.3 %; Lymphocytes # (auto) 1.71 K/uL (1.20-3.40); Lymphocytes % (auto) 15.3 %; Mean Corpuscular Hemoglobin 30.8 pg (25.0-34.0); Mean Corpuscular Hgb Conc 32.2 g/dL (32.0-36.0); Mean Corpuscular Volume 95.6 fL (80.0-100.0); Mean Platelet Volume 10.4 fL (9.4-12.4); Monocytes # (auto) 0.78 K/uL (0.11-0.59); Neutrophils % (auto) 77.1 %; Platelet Count 254 K/uL (130-400); RDW Standard Deviation 41.7 fL (36.4-46.3); Red Blood Count 3.86 M/uL (4.20-5.40); White Blood Count 11.15 K/ul (4.8-10.8)
[2024-05-25 06:57] LABS: Calcium 8.7 mg/dl (8.6-10.3); Creatinine Clr Calc Pharmacy 92.5 ml/min; Potassium 4.4 mmol/L (3.5-5.1)
[2024-05-25] MEDS: CIPROFLOXACIN / D5W 400 MG/200 ML BAG IV SCH (10:04)
[2024-05-25] MEDS ORDERED: Nursing to Pharmacy Communication SCH (12:00)
--- NOTE | 2024-05-25 12:18 | Urology Consultation ---
Date of Consultation May 25, 2024 Assessment & Plan (1) Calculus of distal left ureter: (2) Acute UTI (urinary tract infection): Plan 59yo female admitted with an obstructing stone and concern for infection We reviewed her CT findings showing an obstructing 3 mm left ureteral stone. We discussed acute stone management with cystoscopy and stent placement. Ureteral stents were discussed as well as postoperative issues and pain management. She is aware a second procedure will be needed for stone treatment. Risks and benefits were discussed. All questions were answered. Will plan to proceed to OR today for cystoscopy, left retrograde pyelogram, left ureteral stent placement. Risks and benefits to be reviewed with patient by Dr. Lombardo. Keep NPO. She is covered with IV ciprofloxacin. Urology to follow. History of Present Illness Attending Physician: Malick Song MD History of Present Illness 59 year old female with a history of kidney stones who presented to the ED with acute onset of left flank/abdominal pain with associated chills/shakes. She was afebrile and hemodynamically stable. Labs showing a leukocytosis of 13 and normal renal function. Urinalysis with 3+ blood, 1+ LE,>50WBC, >20 RBC, negative bacteria, negative nitrite CT abdomen pelvis showing a 3 mm stone within the distal third of the left ureter with upstream hydroureteronephrosis Urine culture pending She was started on ciprofloxacin She is admitted to medicine service Patient was seen at bedside today. She is awake and resting in bed on arrival. No acute distress. She reports a history of kidney stones with prior intervention. Reports she was previously told she had a "small urethra" during stent removal. She denies fever, chills, nausea, vomiting at present. Voiding without issue. Denies hematuria or dysuria. Denies noticeable stone passage. Has been NPO. Allergies Allergy/AdvReac Type Severity Reaction Status Date / Time Penicillins Allergy Unknown ANAPHYLAXIS Verified 04/26/24 08:57 Home Medications Medication Instructions Recorded Confirmed Type cholecalciferol (vitamin D3) 25 2,000 unit PO HS #60 tabs 05/26/20 05/24/24 History mcg (1,000 unit) tablet multivitamin 1 tab PO HS 05/26/20 05/24/24 History cyclobenzaprine 10 mg tablet 10 mg PO TID PRN muscle spasm #30 06/16/21 05/24/24 Rx tabs blood sugar diagnostic (OneTouch #100 ea 12/30/21 05/24/24 Rx Verio test strips) blood-glucose meter (OneTouch #1 ea 12/30/21 05/24/24 Rx Verio Reflect Meter) lancing device with lancets kit #100 ea 12/30/21 05/24/24 Rx ([employer] Lancing Device kit) aspirin 81 mg tablet,delayed 81 mg PO Q OTHER DAY 06/20/23 05/24/24 History release (Leslie Low Dose Aspirin) simvastatin 40 mg tablet 40 mg PO HS #90 tabs 06/20/23 05/24/24 Rx diclofenac sodium 50 mg 50 mg PO HS pain #90 tabs 03/19/24 05/24/24 Rx tablet,delayed release metformin 500 mg tablet,extended 1,000 mg (2 x 500 mg) PO HS #180 03/21/24 05/24/24 Rx release 24 hr tabs fluoxetine 10 mg capsule 10 mg PO HS 05/24/24 05/24/24 History Patient History Medical History Diabetes type 2, controlled Osteoarthritis Kidney stones Spasm Diabetes mellitus, type 2 Anxiety Depression Sleep apnea Obesity Hypertension Hyperlipidemia Diverticulosis of colon Surgical History History of breast biopsy H/O bilateral breast reduction surgery History of bilateral tubal ligation History of lithotripsy History of colonoscopy S/P blepharoplasty H/O eye surgery S/P cystoscopy with ureteral stent placement Family History Mother Lymphoma Breast cancer Father Myocardial infarction Hypertension Sister ESRD (end stage renal disease) Brother Hypertension Other No family history of adverse response to anesthesia Denies family history of Ovarian cancer Prostate cancer Colorectal cancer Social History Smoking Status: Never smoker Second Hand Exposure: No; Do You Dip or Chew Tobacco: No; Hx Alcohol Use: Yes Hx Substance Use: No Preferred Language: Maori Communication Ability: Effective Visual Impairment: No Limitations Hearing Ability: Normal Corporate Travel Agent Required: No Beliefs That Will Affect Care: None marital status: Current Living Situation: Spouse current occupational status: retired current occupation: [employer] Feels Safe at Home: Yes Childhood Exposure to Second-Hand Smoke: No Diet: regular caffeine: Yes Dental Care, Regularly: Yes Physical Activity Frequency: 1-2 Times per Week Seatbelt Use: always Sunscreen Use: Yes Assistive Devices: Glasses Review of Systems Review of Systems: All systems reviewed & are unremarkable except as noted in HPI & below Physical Exam Constitutional: no acute distress Respiratory: no respiratory distress and no labored breathing Musculoskeletal: Head/Neck/Chest: normocephalic Skin: No visible rashes or lesions to exposed skin areas Neurologic: moves all extremities and awake Psychiatric: A+Ox3, euthymic affect Results & Data Vital Signs (Past 12 Hours) Vital Signs Temp Pulse Pulse Resp BP Pulse Ox O2 Del Method 05/25/24 08:00 36.6 C 58 L 16 108/65 95 Room Air 05/25/24 05:39 60 05/25/24 03:52 36.6 C 62 16 115/68 96 Room Air PG Care Time/CCT Total # of Minutes Spent Total Time Spent with Patient: Total time spent is greater than 50% in coordination of care (as documented) at patient's floor/unit and/or counseling patient: Coding Level of Care Code 00963 IN/OBS CONSULT LVL 4,60M Diagnoses Calculus of distal left ureter N20.1 Acute UTI (urinary tract infection) N39.0
--- NOTE | 2024-05-25 12:25 | Anesthesiology Consultation ---
Date of Service May 25, 2024 Assessment & Plan Chart Review Chart Review: Acceptable Risk for Surgery and Patient NOT seen in Pre Admission Testing Consults Requested none History Surgery Operation Date: 05/25/24 08:20 Proposed Procedures p Cystoscopy, Left Retrograde Pyelogram, Left Stent Placement - Orville Lombardo MD Height/Weight Height: 5 ft 3.5 in Weight: 93.3 kg Allergies Allergy/AdvReac Type Severity Reaction Status Date / Time Penicillins Allergy Unknown ANAPHYLAXIS Verified 04/26/24 08:57 Medications Home Medications Medication Instructions Recorded Confirmed Last Taken cholecalciferol (vitamin D3) 25 2,000 unit PO HS #60 tabs 05/26/20 05/24/24 05/23/24 mcg (1,000 unit) tablet multivitamin 1 tab PO HS 05/26/20 05/24/24 05/23/24 cyclobenzaprine 10 mg tablet 10 mg PO TID PRN muscle spasm #30 06/16/21 05/24/24 Unknown tabs blood sugar diagnostic (OneTouch #100 ea 12/30/21 05/24/24 Unknown Verio test strips) blood-glucose meter (OneTouch #1 ea 12/30/21 05/24/24 Unknown Verio Reflect Meter) lancing device with lancets kit #100 ea 12/30/21 05/24/24 Unknown ([employer] Delica Lancing Device kit) aspirin 81 mg tablet,delayed 81 mg PO Q OTHER DAY 06/20/23 05/24/24 05/23/24 release (Leslie Low Dose Aspirin) simvastatin 40 mg tablet 40 mg PO HS #90 tabs 06/20/23 05/24/24 05/23/24 diclofenac sodium 50 mg 50 mg PO HS pain #90 tabs 03/19/24 05/24/24 05/23/24 tablet,delayed release metformin 500 mg tablet,extended 1,000 mg (2 x 500 mg) PO HS #180 03/21/24 05/24/24 05/23/24 release 24 hr tabs fluoxetine 10 mg capsule 10 mg PO HS 05/24/24 05/24/24 05/23/24 Active Medications Generic Name Dose Route Start Last Admin Trade Name Freq PRN Reason Stop Dose Admin Ciprofloxacin 400 mg in 200 mls @ 100 mls/hr 05/25/24 10:15 05/25/24 12:17 Cipro / D5w IV 06/04/24 10:14 Infused Q12H NICHOL Infusion Protocol Morphine Sulfate 2 mg 05/24/24 21:51 05/25/24 10:17 Morphine Sulfate 2 Mg/Ml Carp IV 06/07/24 21:50 2 mg Q4H PRN Administration Pain (1,2,3,4,5) & Pre PT Past Medical History Medical History Osteoarthritis Kidney stones Spasm maxi facial spasm (Left) Diabetes mellitus, type 2 NIDDM Anxiety Depression Past Family History Family History Mother Lymphoma Breast cancer Father Myocardial infarction Hypertension Sister ESRD (end stage renal disease) Brother Hypertension Other No family history of adverse response to anesthesia Denies family history of Ovarian cancer Prostate cancer Colorectal cancer Past Surgical History Surgical History History of breast biopsy benign x2 H/O bilateral breast reduction surgery History of bilateral tubal ligation History of lithotripsy History of colonoscopy S/P blepharoplasty bilateral H/O eye surgery tear duct stent (right eye) S/P cystoscopy with ureteral stent placement Social History Smoking Status: Never smoker Do You Dip or Chew Tobacco: No Hx Alcohol Use: Yes alcohol intake frequency: holidays/special occasions only Hx Substance Use: No substance use type: does not use Physical Exam Vital Signs Last Vital Signs Temp 36.8 C 05/25/24 12:19 Pulse 71 05/25/24 12:19 Resp 16 05/25/24 12:19 BP 126/56 L 05/25/24 12:19 Pulse Ox 93 05/25/24 12:19 O2 Del Method Room Air 05/25/24 12:19 Testing Laboratory Results 05/25/24 05:47 05/25/24 05:47 Urine Color [place] 05/24/24 19:43 Urine Appearance Turbid (Clear) A 05/24/24 19:43 Urine pH 5.0 (4.5-7.5) 05/24/24 19:43 Ur Specific [place] 1.040 (1.000-1.030) H 05/24/24 19:43 Urine Protein 2+ (Negative) H 05/24/24 19:43 Urine Glucose (UA) Negative (Negative) 05/24/24 19:43 Urine Ketones Negative (Negative) 05/24/24 19:43 Urine Nitrite Negative (Negative) 05/24/24 19:43 Ur Leukocyte Esterase 1+ (Negative) H 05/24/24 19:43 Urine WBC (Auto) >50 /hpf (0-5) H 05/24/24 19:43 Urine RBC (Auto) >20 /hpf (0-2) H 05/24/24 19:43 U Hyaline Cast (Auto) 11-20 /lpf (0-2) H 05/24/24 19:43 U Epithel Cells (Auto) 3-5 /hpf (0-2) H 05/24/24 19:43 Urine Bacteria (Auto) None Seen (None Seen) 05/24/24 19:43 05/24/24 19:43 Urine Culture - Preliminary Urine,Clean Catch Pin-point growth present, reincubating. 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
[2024-05-25] MEDS ORDERED: ATROPINE SULFATE 0.1 MG/ML 10ML SYR IV PRN (13:16)
[2024-05-25] MEDS ORDERED: fentaNYL citrate PF 100 MCG/2 ML VIAL IV PRN (13:16)
[2024-05-25] MEDS ORDERED: ePHEDrine sulfate 50 MG/ML AMP IV PRN (13:16)
[2024-05-25] MEDS ORDERED: PROMETHAZINE HCL 6.25 MG in SODIUM CHLORIDE 0.9% 50 ML IV PRN (13:16)
[2024-05-25] MEDS ORDERED: ONDANSETRON INJ 2 MG/ML 2 ML VIAL IV PRN (13:16)
[2024-05-25] MEDS: LR 15ML/HR IV SCH (13:20)
[2024-05-25] MEDS ORDERED: LIDOCAINE 2% 2 ML VIAL/AMP(20MG/ML) INFIL ONE (13:39)
[2024-05-25] MEDS ORDERED: MIDAZOLAM HCL 1 MG/ML 2ML VIAL ONE (13:39)
[2024-05-25] MEDS ORDERED: fentaNYL citrate PF 100 MCG/2 ML VIAL ONE (13:39)
[2024-05-25] MEDS ORDERED: PROPOFOL IV EMULSION 10 MG/ML 20 ML VIAL IV ONE (13:40)
[2024-05-25] MEDS ORDERED: ONDANSETRON INJ 2 MG/ML 2 ML VIAL ONE (14:08)
[2024-05-25] MEDS ORDERED: KETOROLAC 30 MG/ML VIAL ONE (14:09)
[2024-05-25] MEDS ORDERED: ePHEDrine sulfate 50 MG/ML AMP ONE (14:11)
--- NOTE | 2024-05-25 14:14 | Operative Report ---
[facility] Post Operative Report Pre & Post Diagnosis Operation Date: 05/25/24 07:00 Pre-Op Diagnosis: Calculus of distal left ureter Post-Op Diagnosis: Calculus of distal left ureter I identified the patient and participated in the time-out.: Yes Procedure Operation Date: 05/25/24 07:00 Actual Procedures p Cystoscopy, Left Retrograde Pyelogram, Left Stent Placement(Left) - Orville Lombardo MD Surgeon Orville Lombardo MD [employer] none Estimated Blood Loss 0 Findings Consistent with Post-Op Diagnosis Specimens none Description of Procedure The patient was identified in the preoperative holding area, appropriate informed consents were reviewed and completed and the patient was transferred to the operative suite. Upon arrival, appropriate antibiotics and anesthesia were administered and the patient was placed in dorsal lithotomy position and prepped and draped in sterile fashion. Me in the case I passed a 21 Tong[place] cystoscope 30 lens. Inspection revealed a healthy appearing bladder with ureteral orifices in orthotopic position. I turned my attention the left UO and cannulated with a sensor wire and a 5 Tong[place] open-ended catheter. Wire advanced the kidney without difficulty and I proceeded to place a 7 Tongan by 24 cm Coloplast double-J stent. There was good curl in the kidney as well as the bladder. The bladder was decompressed and the case was concluded. She was reversed of anesthesia and taken the recovery room in stable condition. She will be scheduled for definitive surgery to treat her stone in the near future. I attest to the content of the Intraoperative Record and any orders documented therein. Any exceptions are noted below.
--- NOTE | 2024-05-25 14:21 | Anesthesiology Progress Note ---
Date of Service May 25, 2024 Anesthesia Post Procedure Vital Signs Vital Signs: Temp Pulse Pulse Resp BP BP BP 05/25/24 13:10 36.9 C 62 16 143/74 H 05/25/24 13:00 56 L 05/25/24 12:19 36.7 C 91 H 16 115/67 05/25/24 08:00 36.6 C 58 L 16 108/65 05/25/24 05:39 60 05/25/24 03:52 36.6 C 62 16 115/68 05/24/24 23:37 64 05/24/24 23:30 05/24/24 23:10 36.3 C L 70 18 145/74 H 05/24/24 21:55 65 24 132/83 05/24/24 21:45 63 15 132/83 05/24/24 21:44 61 05/24/24 20:29 56 L 18 141/76 H 05/24/24 17:33 36.9 C 85 18 134/75 Pulse Ox O2 Del Method 05/25/24 13:10 95 Room Air 05/25/24 13:00 05/25/24 12:19 93 Room Air 05/25/24 08:00 95 Room Air 05/25/24 05:39 05/25/24 03:52 96 Room Air 05/24/24 23:37 05/24/24 23:30 Room Air 05/24/24 23:10 96 Room Air 05/24/24 21:55 97 Room Air 05/24/24 21:45 95 Room Air 05/24/24 21:44 05/24/24 20:29 98 Room Air 05/24/24 17:33 98 Room Air Pain Intensity Left Flank: Pain Intensity: 1 Transfer of Care Handoff Completed per policy Notes Mental Status: alert / awake / arousable Patient Amnestic to Procedure: Yes Nausea / Vomiting: adequately controlled Pain: adequately controlled Airway Patency, RR, SpO2: stable & adequate BP & HR: stable & adequate Hydration State: stable & adequate Anesthetic Complications: no major complications apparent
--- NOTE | 2024-05-25 15:09 | Fluoroscopy Report ---
FL [facility] CLINICAL HISTORY: STENT EXCHANGEleft ureteral stent placement COMPARISON STUDY: CT 05/24/2024 FLUOROSCOPY TIME: 5.5 seconds FLUOROSCOPY IMAGES: 2 EXPOSURE DOSE: 1.61 mGy FINDINGS: A left ureteral stent appears to be in satisfactory positioning. IMPRESSION: Fluoroscopic assistance as above. ACT 112: Negative or not required by law. Electronically signed by: Anthony Gruber M.D. 05/25/2024 2:31 PM
[2024-05-25 15:24] VITALS: RESP 18
--- NOTE | 2024-05-25 17:05 | Hospitalist Progress Note ---
Date of Service May 25, 2024 Assessment & Plan (1) Calculus of distal left ureter: Plan: 59 year old female with a past medical history of kidney stones, HLD, DM2 presented with concern for kidney stone. She experienced left flank pain with hematuria and reported pain is similar to prior kidney stones. She reports her previous stents required stent placement/lithotripsy. - CT A&P with 3mm stone in distal third of left ureter with upstream hydroureteronephrosis - Urology consulted, s/p cystoscopy, left retrograde pyelogram, left ureteral stent placement 05/[address] Lombardo. Patient tolerated procedure well with no complications noted - Tylenol as needed for mild pain or fever, oxycodone 5 mg p.o. Q6H PRN moderate-severe pain - Continue tamsulosin 0.4 mg daily - Anticipate discharge home 05/26 with outpatient urology follow-up (2) Acute UTI (urinary tract infection): Plan: Leukocytosis with +UA in setting of nephrolithiasis - Urine culture with >3 types of organisms present, all moderate counts mixed probable skin jazmine - Continue ciprofloxacin 400 mg IV Q12H, can transition to oral cipro on discharge (3) Diabetes mellitus, type 2: Plan: Last A1c= 5.9% in 04/2024 - On metformin at home - held while admitted - Well controlled for years; unlikely to require any insulin coverage while admitted (4) Anxiety: Plan: Continue fluoxetine Plan Reviewed urology consultation and operative report CODE STATUS: Full code Dispo: Anticipate discharge home 05/26/2024 Admission and Anticipated Discharge Date Admission Date: May 24, 2024 Supervising Physician Co-Signing Physician Notes Attending Attestation - Chart reviewed, care plan d/w CAMDEN Knight. I agree w/ the boswell components of her documentation. Malick Song MD Subjective Patient seen and evaluated at bedside following her procedure. She met with urology earlier today who discussed treatment options, and patient decided to proceed with cystoscopy, left retrograde pyelogram, and left ureteral stent placement. She tolerated this procedure well with no complications noted. She reports minor headache at this time and believes this is from being hungry. She also reports some discomfort from her stent. She denies any other complaints or concerns at this time. She debated return home this evening, but wanted to ensure no problems arise overnight. Anticipate discharge 05/26 in the morning. Physical Exam Physical Exam: General: No acute distress, nondiaphoretic, well-developed, well-nourished. Cardiac: Regular rate and rhythm without murmurs gallops or rubs. Pulm: Clear to auscultation bilaterally without wheezes, rales or rhonchi. No respiratory distress. 95% on room air. Abdominal: Soft, nontender, nondistended. Bowel sounds present. Neuro: A&O x3. No focal neurological deficits. Results & Data Results & Data Vital Signs (Past 12 Hours) Vital Signs Temp Pulse Pulse Pulse Resp BP BP 05/25/24 15:38 58 L 05/25/24 15:23 64 18 126/69 05/25/24 15:02 98.1 F 61 16 111/67 05/25/24 14:50 98.4 F 60 12 123/61 05/25/24 14:40 61 12 128/64 05/25/24 14:30 61 16 134/72 05/25/24 14:20 97.7 F 78 16 155/84 H 05/25/24 13:10 98.4 F 62 16 143/74 H 05/25/24 13:00 56 L 05/25/24 12:19 98.1 F 91 H 16 115/67 05/25/24 08:00 97.9 F 58 L 16 108/65 05/25/24 05:39 60 Pulse Ox O2 Del Method 05/25/24 15:38 05/25/24 15:23 95 Room Air 05/25/24 15:02 93 Room Air 05/25/24 14:50 94 Room Air 05/25/24 14:40 94 Room Air 05/25/24 14:30 94 Room Air 05/25/24 14:20 95 Room Air 05/25/24 13:10 95 Room Air 05/25/24 13:00 05/25/24 12:19 93 Room Air 05/25/24 08:00 95 Room Air 05/25/24 05:39 Laboratory Results Reviewed CBC Reviewed CMP Reviewed UA Reviewed urine culture PG Care Time/CCT Total # of Minutes Spent Total Time Spent with Patient: Total time spent is greater than 50% in coordination of care (as documented) at patient's floor/unit and/or counseling patient: Coding Level of Care Code 27925 SUB INP/OBS CARE 3/50MIN Diagnoses Calculus of distal left ureter N20.1 Acute UTI (urinary tract infection) N39.0 Diabetes mellitus, type 2 E11.9 Anxiety F41.9
[2024-05-25] MEDS: TAMSULOSIN HCL 0.4 MG CAP PO ONE (17:43)
[2024-05-25] MEDS: MULTIVITAMIN TAB PO SCH (21:03)
[2024-05-25] MEDS: FLUoxetine HCL 10 MG CAP PO SCH (21:03)
[2024-05-25] MEDS: oxyCODONE HCL IR 5 MG TAB (IMMEDIATE RELEASE) PO PRN (23:11)
[2024-05-26 06:42] LABS: Hematocrit (blood only) 39.4 % (37.0-47.0); Hemoglobin 12.3 g/dl (12.0-16.0); Mean Corpuscular Hemoglobin 30.6 pg (25.0-34.0); Mean Corpuscular Hgb Conc 31.2 g/dL (32.0-36.0); Platelet Count 220 K/uL (130-400); RDW Standard Deviation 43.7 fL (36.4-46.3); Red Blood Count 4.02 M/uL (4.20-5.40); White Blood Count 10.16 K/ul (4.8-10.8)
[2024-05-26 07:31] VITALS: TEMP 97.9; O2SAT 96
[2024-05-26] MEDS: ACETAMINOPHEN 325 MG TAB PO PRN (08:13)
[2024-05-26] MEDS: TAMSULOSIN HCL 0.4 MG CAP PO SCH (08:14)
--- NOTE | 2024-05-26 08:22 | Discharge Summary ---
Discharge Summary Date of Service May 26, 2024 Principal Dx & Hospital Course #1 = Principal Diagnosis (1) Calculus of distal left ureter: 59 year old female with a past medical history of kidney stones, HLD, DM2 presented with concern for kidney stone. She experienced left flank pain with hematuria and reported pain was similar to prior kidney stones. She reports her previous stents required stent placement/lithotripsy. Patient was into the OR f or cystoscopy, left retrograde pyelogram, left ureteral stent placement on 05/25/[address] Lombardo. She tolerated this well with no complications noted. She will follow-up with urology outpatient for definitive stone management. - CT A&P with 3mm stone in distal third of left ureter with upstream hydroureteronephrosis - Urology consulted, s/p cystoscopy, left retrograde pyelogram, left ureteral stent placement 05/[address] Lombardo; tolerated procedure well with no complications noted - Pain regimen on discharge: Tylenol/ibuprofen as needed for mild pain/fever. Tramadol 50 mg p.o. every 6 hours as needed moderatesevere pain. - Continue tamsulosin 0.4 mg daily (2) Acute UTI (urinary tract infection): Leukocytosis with +UA in setting of nephrolithiasis - Urine culture with >3 types of organisms present, all moderate counts mixed probable skin jazmine - Treated with IV ciprofloxacin while inpatient, transitioned to ciprofloxacin 500 mg p.o. twice daily x 5 days on discharge (3) Diabetes mellitus, type 2: Last A1c= 5.9% in 04/2024 - On metformin at home - Well controlled for years; did not require any insulin coverage while admitted (4) Anxiety: Continue fluoxetine Plan Dispo: Discharged home 05/26/2024 Notes For Next Care Provider Follow-up with urology outpatient for definitive stone treatment Medication Changes From Visit Cipro 500 mg twice daily x 5 days Flomax 0.4 mg daily Tramadol 50 mg every 6 hours as needed moderatesevere pain Admission HPI Per Admitting Provider 59 year old female with a past medical history of kidney stones, HLD, DM2 presenting with concern for kidney stone. Has a history of kidney stones. Pain started around 1000. Left abdomen/flank. Notes hematuria. Pain is similar to prior kidney stones, but has been a few years since for last. Follows with urology. Denies fever/chills. Pain has improved significantly after morphine. Did require stent/lithotripsy with prior stones. ED Course Significant for: WBC= 13.2, UA +blood, LE, WBC. CT A&P with 3mm stone in distal third of left ureter with upstream hydroureteronephrosis. S/p ciprofloxacin, 4mg IV morphine, 4mg Zofran, 1L NSS Discharge Exam General: No acute distress, nondiaphoretic, well-developed, well-nourished. Cardiac: Regular rate and rhythm without murmurs gallops or rubs. Pulm: Clear to auscultation bilaterally without wheezes, rales or rhonchi. No respiratory distress. 95% on room air. Abdominal: Soft, nontender, nondistended. Bowel sounds present. Neuro: A&O x3. No focal neurological deficits. Discharge Plan Discharge Items Patient Disposition: Home - Self-Care Reason For Visit: KIDNEY STONE Discharge Diagnosis: Ureteral stone s/p stent placement, UTI Activity: Resume your previous activity Lifting: Gradually increase as tolerated Bathing: No limitations Sexual Activity: When tolerated Exercise/Sports: Gradually increase as tolerated Non-emergency contact: Urologist Call non-emergency contact if: you have any medication questions, your pain is concerning for you, you have a fever and your temperature is above 101.5 Follow-up/Referrals: Orville Barakat MD [Primary Care Provider] - (Follow-up in 1-2 weeks) Greg Quiroz MD [Physician] - (Follow-up as directed) Diet: Carb Consistent or DM2 Addtl Attending Provider Instructions: Mrs. Anaya, Tin were admitted to the hospital because of a left ureteral stone with hydroureteronephrosis (swelling of your ureter/kidney). Your urinalysis was suggestive of a urinary tract infection (UTI), so you were started on an antibiotic. You were evaluated by urology who discussed options for stone management. You went to the OR and had cystoscopy, left retrograde pyelogram, left ureteral stent placed on 05/25/[address] Lombardo. He tolerated this procedure well and there were no complications. Your prescriptions have been sent to your [facility] pharmacy in [place]. Upon discharge from the hospital: * Take ciprofloxacin (oral antibiotic) 500 mg twice daily x 5 days. This is to treat your UTI. It is important to complete this course of antibiotics even if you are no longer experiencing symptoms. * Take Flomax 0.4 mg daily. This is an alpha-mamadou relaxes the muscles in your bladder, making it easier to pee and potentially pass the kidney stone. Take this until your urology follow-up appointment. * Alternate between Tylenol and ibuprofen as your first-line pain control. These are [id number] (OTC), so no prescription is required. * Take tramadol 50 mg every 6 hours NEEDED for breakthrough pain. This is a narcotic pain medication. Do not drive or operate heavy machinery when taking this. * Use the urine strainer to strain your urine at home in case you pass the stone. Your nurse will provide you with a strainer prior to leaving the [facility]. * Follow-up with urology outpatient for definitive stone treatment. Their office will call you with appointment details. While you have a ureteral stent in place: Some discomfort is normal. Certain movements may trigger pain or a feeling that you need to urinate. You may also feel mild soreness or pressure before or during urination. These symptoms should go away a few days after the stent is removed. Your urine may be slightly pink or red. This is due to bleeding caused by minor irritation from the stent. This may happen on and off while you have the stent, it is not harmful and is to be expected. Medication to help minimize discomfort or bladder spasms, or to prevent infection may be prescribed. Take this as directed. Drink plenty of fluids to help flush out your urinary tract. If you go home with a catheter, wash with soapy water and a fresh washcloth twice daily. We recommend mild bar soap such as Dial or Dove. When to call [facility] at [phone]: Your urine contains heavy blood clots You are constantly leaking urine Fever of 101F or higher, chills, nausea, or vomiting Your pain is not relieved with medication The end of the stent comes out of your urethra Please return to the hospital if you experience any of the following: Pain that is not controlled by the medicine given, repeated vomiting or unable to keep down fluids, fever of 100.4 F or higher, solid red or brown urine, urine with a lot of blood clots, foul-smelling or cloudy urine, unable to urinate for 8 hours with increasing bladder pressure, weakness, dizziness, passing out, chest pain, or difficulty breathing. It was a pleasure taking care of you while you were in the hospital, Christine Knight PA-C Addtl Athletic Trainer Provider Instructions: Is expected to see a small amount of blood while you have a left stent in place. He also may experience some flank pain when urinating. This will resolve once the stent is removed. Dr. Lombardo's office will be in touch with you to schedule a definitive surgery to treat the kidney stone. Pending Studies at Discharge: No Stand-Alone Forms: My [facility] [place], Smoking Cessation Medications and DC Order Prescriptions: New ciprofloxacin HCl [Cipro] 500 mg tablet 500 mg PO BID Qty: 10 0RF tramadol 50 mg tablet 50 mg PO Q6H PRN (Reason: pain) Qty: 20 0RF tamsulosin 0.4 mg Capsule 0.4 mg PO QAM Qty: 14 0RF Continued (DME) blood-glucose meter [BlackSquareTouch Verio Reflect Meter] Misc See Rx Instructions .Route Qty: 1 0RF Rx Instructions: As directed (DME) OneTouch Verio test strips Strip See Rx Instructions .Route Qty: 100 3RF Rx Instructions: As directed (DME) lancing device with lancets [[place] Delica Lanc Device] Kit See Rx Instructions .Route Qty: 100 0RF Rx Instructions: As directed diclofenac sodium 50 mg tablet,delayed release (DR/EC) 50 mg PO HS Qty: 90 1RF metformin 500 mg tablet extended release 24 hr 1,000 mg PO HS Qty: 180 3RF cyclobenzaprine 10 mg tablet 10 mg PO TID PRN (Reason: muscle spasm) Qty: 30 0RF cholecalciferol (vitamin D3) 25 mcg (1,000 unit) tablet 2,000 unit PO HS Qty: 60 simvastatin 40 mg tablet 40 mg PO HS Qty: 90 3RF multivitamin Tablet 1 tab PO HS aspirin [Leslie Low Dose Aspirin] 81 mg tablet,delayed release (DR/EC) 81 mg PO Q OTHER DAY fluoxetine 10 mg capsule 10 mg PO HS Discharge Orders: Discharge Order (Routine); Ordered 05/26/24 Ordered By: Christine Knight Admission Data Admit Date/Time: 05/24/24 21:47 Attending Provider: Malick Song Admit Provider: Milagro Cox Primary Care Provider: Orville Barakat Other Providers: Milagro Cox; Orville Lombardo Other Interventions: Discharge Summary Assessment (RN) Last Done: 05/26/24 09:27 Hospital Stay Data Consultations 05/24/24 21:32 Consult Urology Routine ED Decision to Admit Stat Procedures Performed Operation Date: 05/25/24 07:00 Actual Procedures p Cystoscopy, Left Retrograde Pyelogram, Left Stent Placement(Left) - Orville Lombardo MD Diagnostic Imagining Performed 05/24/24 17:41 CT abd pelvis wo con Stat 05/25/24 13:30 FL KUB Routine Pending Results Patient Have Any Pending Studies at Discharge: No Discharge Instructions Given to Patient (Per Discharging Provider) Tin Evans were admitted to the hospital because of a left ureteral stone with hydroureteronephrosis (swelling of your ureter/kidney). Your urinalysis was suggestive of a urinary tract infection (UTI), so you were started on an antibiotic. You were evaluated by urology who discussed options for stone management. You went to the OR and had cystoscopy, left retrograde pyelogram, left ureteral stent placed on 05/25/[address] Lombardo. He tolerated this procedure well and there were no complications. Your prescriptions have been sent to your [facility] pharmacy in [place]. Upon discharge from the hospital: * Take ciprofloxacin (oral antibiotic) 500 mg twice daily x 5 days. This is to treat your UTI. It is important to complete this course of antibiotics even if you are no longer experiencing symptoms. * Take Flomax 0.4 mg daily. This is an alpha-mamadou relaxes the muscles in your bladder, making it easier to pee and potentially pass the kidney stone. Take this until your urology follow-up appointment. * Alternate between Tylenol and ibuprofen as your first-line pain control. These are [id number]-hwphrab (OTC), so no prescription is required. * Take tramadol 50 mg every 6 hours NEEDED for breakthrough pain. This is a narcotic pain medication. Do not drive or operate heavy machinery when taking this. * Use the urine strainer to strain your urine at home in case you pass the stone. Your nurse will provide you with a strainer prior to leaving the h ospital. * Follow-up with urology outpatient for definitive stone treatment. Their office will call you with appointment details. While you have a ureteral stent in place: Some discomfort is normal. Certain movements may trigger pain or a feeling that you need to urinate. You may also feel mild soreness or pressure before or during urination. These symptoms should go away a few days after the stent is removed. Your urine may be slightly pink or red. This is due to bleeding caused by minor irritation from the stent. This may happen on and off while you have the stent, it is not harmful and is to be expected. Medication to help minimize discomfort or bladder spasms, or to prevent infection may be prescribed. Take this as directed. Drink plenty of fluids to help flush out your urinary tract. If you go home with a catheter, wash with soapy water and a fresh washcloth twice daily. We recommend mild bar soap such as Dial or Dove. When to call [facility] at [phone]: Your urine contains heavy blood clots You are constantly leaking urine Fever of 101F or higher, chills, nausea, or vomiting Your pain is not relieved with medication The end of the stent comes out of your urethra Please return to the hospital if you experience any of the following: Pain that is not controlled by the medicine given, repeated vomiting or unable to keep down fluids, fever of 100.4 F or higher, solid red or brown urine, urine with a lot of blood clots, foul-smelling or cloudy urine, unable to urinate for 8 hours with increasing bladder pressure, weakness, dizziness, passing out, chest pain, or difficulty breathing. It was a pleasure taking care of you while you were in the hospital, Christine Knight PA-C Supervising Physician Co-Signing Physician Notes Attending Attestation and Discharge Note: Chart reviewed, discharge care plan d/w CAMDEN Knight. I agree w/ the boswell components of her discharge documentation. 59yo female with history of T2DM & kidney stones presented with left-sided ab dominal & flank pain. CT abd/pelvis with a distal 3mm left-sided ureteral kidney stone. Seen by [facility]; on 05/25 underwent cystoscopy with left ureteral stent placement by Dr Aston Lombardo. She remained hemodynamically stable while hospitalized. Discharge creatinine was stable at 0.7. She will f/u with [facility] shortly after d/c for definitive stone & stent management. A course of cipro will be completed; she will continue on daily flomax; and a prescription for tramadol prn was given for pain relief. Malick Song MD Total Time Total Time Spent Total Time Spent (In Minutes): Greater than 30 minutes spent completing this discharge process including direct patient care, medication reconciliation, documentation, review of labs and images, and coordination of care. Coding Level of Care Code 63382 INP/OBS DISCH >30 MIN Diagnoses Calculus of distal left ureter N20.1 Acute UTI (urinary tract infection) N39.0 Diabetes mellitus, type 2 E11.9 Anxiety F41.9
[2024-05-26] MEDS: CIPROFLOXACIN 500 MG TAB PO STA (08:50)
[2024-05-26 09:28] VITALS: BP 126/69; PULSE 61
== END 2024-05-26 10:56 | disposition home or self-care (01) | DRG 661 ==
LOC: ED 17:14 → 2N 21:47 → SUATTDRO 21:47 → 2N 22:41
DX: F32.A Depression, unspecified; Z79.1 Long term (current) use of non-steroidal anti-inflammatories (NSAID); R31.9 Hematuria, unspecified; F41.9 Anxiety disorder, unspecified; Z79.899 Other long term (current) drug therapy; Z79.82 Long term (current) use of aspirin; Z79.84 Long term (current) use of oral hypoglycemic drugs; N13.6 Pyonephrosis; E11.9 Type 2 diabetes mellitus without complications; Z87.442 Personal history of urinary calculi; Z88.0 Allergy status to penicillin; E78.5 Hyperlipidemia, unspecified